=== PATIENT | female | born 1985 | race African-American/Black ===

== ENCOUNTER 2018-03-21 19:33 | Observation (INO) | payer OTHER, SELFPAY ==
[~2018-03-21 19:33] MED LIST: ISOVUE-370 76%-LOCM 1 ML ONE; Iopamidol 370 76% 50 ML VIAL FS ONE
[2018-03-21] MEDS ORDERED: Morphine 4 MG/ML VIAL ONE ×3 (19:55→20:56)
[2018-03-21 20:08] LABS: #Basophils 0.1 thou/uL (0.0-0.2); #Eosinphils 0.2 thou/uL (0.0-0.7); #Lymphocytes 2.3 thou/uL (1.20-3.40); #Monocytes 0.6 thou/uL (0.11-0.59); #Neutrophils 5.5 thou/uL (1.40-6.50); %Basophils 0.7 % (0.0-1.0); %Eosinophils 2.3 % (0.0-10.0); %Lymphocytes 26.6 % (21.0-51.0); %Monocytes 7.4 % (0.0-10.0); %Neutrophils 63.1 % (42.0-75.0); Hemoglobin 11.2 g/dL (12.0-16.0); Mean Corpuscular HGB CONC 32.9 g/dL (32.0-36.0); Mean Corpuscular Hemoglobin 28.3 pg (27.0-31.0); Mean Corpuscular Volume 86.1 fL (78.0-98.0); Mean Platelet Volume 7.3 fL (7.4-10.4); Platelet Count 274 thou/uL (130-400); RBC Distribution Width 13.9 % (11.5-14.5); Red Blood Cell (RBC) Count 3.94 mill/uL (4.20-5.40); White Blood Cell (WBC) Count 8.7 thou/uL (4.8-10.8)
[2018-03-21 20:16] LABS: Bilirubin Negative (Negative); Blood, Urine Large (Negative); Clarity CLEAR (Clear); Glucose, Urine (Dipstick) Negative (Negative); Leukocyte Trace (Negative); Nitrite Negative (Negative); Protein, Urine (Dipstick) Trace mg/dL (Neg-Trace); pH, Urine 7.5 (5.0-9.0)
[2018-03-21 20:19] LABS: Bacteria/HPF None Seen HPF (None Seen); Hyaline Casts/LPF 0-3 HYALINE CAST LPF (0-3 Hyaline); WBC/HPF 0-3 HPF (0-3)
[2018-03-21 20:31] LABS: ALT (SGPT) 17 U/L (8-55); AST (SGOT) 16 U/L (5-34); Albumin 3.7 g/dL (3.5-5.0); Alkaline Phosphatase 55 U/L (40-150); Anion Gap 11 mmol/L (10-20); BUN (Urea Nitrogen) 10 mg/dL (7.0-18.7); Bilirubin, Total 0.3 mg/dL (0.2-1.2); Calc. Creatinine Clearance 0 mL/min (70-130); Calcium 9.3 mg/dL (7.8-10.44); Carbon Dioxide 23 mmol/L (22-29); Chloride 105 mmol/L (98-107); Estimated GFR-MDRD Greater than 90; Globulin 3.6 g/dL (2.4-3.5); Glucose 90 mg/dL (70-105); Lipase 13 U/L (8-78); Potassium 3.8 mmol/L (3.5-5.1); Protein, Total 7.3 g/dL (6.0-8.3); Sodium 135 mmol/L (136-145)
[2018-03-21] MEDS ORDERED: Ondansetron PF 4 MG/2 ML Vial ONE (20:40)
[2018-03-21 21:06] LABS: BHCG - Serum Negative (NEGATIVE); Pregs Control Background? CLEAR/WHITE (CLR/WHITE); Pregs Control Bar Appear? YES (CONTROL BAR)
--- NOTE | 2018-03-21 22:50 | CT ---
CT ABDOMEN WITH CONTRAST CT PELVIS WITH CONTRAST 03/21/18 HISTORY: Abdominal pain. Right lower quadrant pain. COMPARISON: None. CORRELATION: Pelvic ultrasound, 03/21/18. FINDINGS: ABDOMEN CT: Lung bases are clear. Heart size is normal. No significant pericardial fluid. Visualized aorta is unr emarkable. Portal vein is patent. Gallbladder is unremarkable. Subcentimeter hypodensity in the right hepatic lobe are too small to characterize but are statistical ly favored to be cysts. The spleen, pancreas and adrenal glands have appropriate enhancement. Symmetric enhancement of the kidneys. There is mild prominence of the left and right intrarenal colle cting system. Additionally, there is mild prominence of the proximal right ureter. Mid to distal left and right ureter are difficult to appreciate and are presumed to be decompressed. There are no calci fications along the course of either ureter. No gastrohepatic, retrocrural, or periportal lymphadenopathy. No mesenteric mass, lymphadenopathy, free air, or free fluid. There is a ventral abdominal wall herni a containing mesenteric fat. Gastric mucosa, duodenum, and multiple normal caliber small bowel loops are noted. Ileocecal junction is unremarkable. There is scattered fecal material in a nondistended, nondilated colon. Normal calib er appendix is identified. PELVIC CT: The urinary bladder is unremarkable. There is fluid in the pelvis. Left ovarian cyst, measuring 1.7 c m is identified. There is no obvious CT correlate with the left and right adnexal masses noted on rec ent ultrasound. There is no evidence of hydrosalpinx or pyosalpinx. The fallopian tubes do not appear to be distended. There is heterogeneous attenuation of the adnexal structures and the uterus. There are no lytic or blastic lesions in the osseous structures. IMPRESSION: 1. Normal caliber appendix. 2. Heterogeneous attenuation of the adnexal structures and uterus. No definite CT evidence of hy drosalpinx or pyosalpinx. If there is still concern for adnexal pathology, pelvic MRI can be performe d. 3. Mild dilatation of both intrarenal collecting systems and the proximal right ureter. If there is concern for urinary tract infection, urinalysis is recommended. POS: [facility]
--- NOTE | 2018-03-21 23:40 | ULT ---
PELVIC ULTRASOUND: 03/21/18 HISTORY: Right lower quadrant pain, severe. Negative HCG. COMPARISON: None. TECHNIQUE: Transabdominal and endovaginal imaging of the pelvis is performed. Ovaries are interrogated with diane scale, color flow, doppler imaging with spectral waveform analysis. FINDINGS: There is a retroverted uterus, measuring 7.3 x 4.0 x 5.1 cm. No myometrial masses. Endometrium is sli ghtly heterogeneous measuring 0.70 cm. There are bilateral adnexal masses. The right adnexal mass measures 2.6 x 1.3 x 4.5 cm. The left adne xal mass measures 1.9 x 1.4 x 3.4 cm. There is a complex cyst in the left ovary measuring 1.9 x 0.9 cm. Overall, the left ovary measures 0. 8 x 5.0 x 2.6 cm. The right ovary measures 4.0 x 2.2 x 2.1 cm. There is free fluid in the cul-de-sac. OVARIAN DOPPLER: Vascular flow to the right and left ovary. IMPRESSION: Bilateral adnexal masses of uncertain etiology. Further evaluation with abdomen and pelvic CT may be beneficial. CT should be performed with oral and IV contrast. Oral contrast is imperative to better e valuate the bowel, especially given the history of right lower quadrant pain. POS: [facility]
[2018-03-22] MEDS ORDERED: Morphine 4 MG/ML VIAL ONE (00:05)
[2018-03-22] MEDS ORDERED: Ketorolac Tromethamine 30 MG/ML VIAL ONE (00:05)
[2018-03-22] MEDS ORDERED: Morphine 10 MG/ML VIAL SLOW IVP PRN (01:21)
[2018-03-22 02:52] VITALS: BMI 36.5
[2018-03-22] MEDS: Sodium Chloride 0.9% 1,000 ML IV SCH ×2 (04:22→09:44)
[2018-03-22] MEDS ORDERED: Acetaminophen 325 MG TAB PO PRN (07:48)
[2018-03-22] MEDS: Ibuprofen 200 MG TAB PO PRN ×2 (07:53→18:22)
[2018-03-22] MEDS ORDERED: hydrALAZINE 20 MG/ML VIAL SLOW IVP PRN (07:59)
[2018-03-22] MEDS ORDERED: Senokot S 8.6-50 MG TAB PO PRN (07:59)
[2018-03-22] MEDS ORDERED: Benzonatate 100 MG CAP PO PRN (07:59)
[2018-03-22] MEDS ORDERED: Bisacodyl 5 MG TAB PO PRN (07:59)
[2018-03-22] MEDS ORDERED: Diabetic Tussin 200 MG/10 ML UDCUP PO PRN (07:59)
[2018-03-22] MEDS ORDERED: cloNIDine 0.1 MG TAB PO PRN (07:59)
[2018-03-22] MEDS ORDERED: Sodium Chloride 0.9% 1,000 ML IV SCH (09:53)
[2018-03-22] MEDS: Acetaminophen/Codeine 30-300mg Tablet PO PRN ×3 (10:21→18:17)
--- NOTE | 2018-03-22 10:35 | HP ---
DATE OF ADMISSION: 03/22/2018 PRIMARY CARE PHYSICIAN: None. CHIEF COMPLAINT: Right-sided abdominal pain in the lower quadrant as well as vaginal and rectal pain . HISTORY OF PRESENT ILLNESS: Ms. Antonio is a pleasant 32-year-old female without any significant past medical history who presented to the emergency room with above-mentioned complaint. History is mainl y obtained by the patient herself. Electronic medical records have been reviewed. According to Ms. Antonio, she started to have this right lower quadrant abdominal pain about 4 days ago . It actually started as a severe vaginal discomfort when bearing down. She also started to have a rectal pressure and pain about the same time. She feels it as an intense pain every time she tries t o bear down. She denies any dysuria. She denies any blood in the stools or any other rectal bleedin g. She denies any sick contacts, fever, or chills. She is monogamous with her partner and denies an y risk factors for sexually transmitted diseases. She normally has regular menses, but she states th at this month she started to have second episode of bleeding. Her last menstrual period was earlier this month and then she started to have another cycle 4 days ago. She states that when she tried to put a tampon it hurt really bad and she also complains of painful intercourse. Upon presentation to the emergency room, she was hemodynamically stable with blood pressure 123/63. She had low grade fever of 99.1. She underwent thorough examination including a pelvic ultrasound wh ich was questionable for some bilateral adnexal masses, so CT scan of the abdomen and pelvis was done . It was negative for any acute abnormality including normal appendix and no adnexal masses or absce sses. No renal abnormality or stones were seen. She is now being admitted for further evaluation an d pain control. A GC chlamydia screen and vaginitis screen has been obtained. Her urinalysis is unr emarkable. Serum chemistries unremarkable. test of the serum is negative. Lipase is norm al. PAST MEDICAL HISTORY: No significant past medical history. She is otherwise very healthy. PAST SURGICAL HISTORY: Two section. FAMILY HISTORY: She denies any family history of colon cancer, stomach cancer. She denies any famil y history of inflammatory bowel disease. She does have multiple family members with diabetes. PSYCHIATRIC HISTORY: No anxiety, no depression. SOCIAL HISTORY: She has no history of drug, tobacco or alcohol abuse. She lives at home with family and has 2 children. ALLERGIES: PINEAPPLE. MEDICATIONS: None. REVIEW OF SYSTEMS: A 12-point review of systems is done and it is negative except for those mentione d in the history and physical. LABORATORY EXAMINATION: Her CBC is unremarkable. Hemoglobin 11.2. Serum chemistries unremarkable. Lipase 13. Urinalysis showed some leukocyte esterase, but multiple RBCs. CT scan of the abdomen an d pelvis is unremarkable for any acute pathology. Pelvic ultrasound by my review is also unremarkabl e. PHYSICAL EXAMINATION: VITAL SIGNS: Most recent vital signs, temperature 99.5, pulse of 95, respirations 14, saturating 98% on room air, blood pressure 101/56. GENERAL: No acute distress. She does appear somewhat uncomfortable and lies on her side trying not to move much. HEENT: Mucous membrane is moist and pink. No oropharyngeal exudate or erythema. Head is normocepha lic, atraumatic. Pupils equal, reactive to light and accommodation. Extraocular movement intact. NECK: Supple without any lymphadenopathy, JVD or bruit. CHEST: Clear to auscultation without any wheezing, rales or rhonchi. CARDIOVASCULAR: Rhythm is regular without any murmur, rubs or gallops. ABDOMEN: Obese, tender to palpation mainly in the right lower quadrant, but also diffusely up as wel l. She appears bloated, but there is no guarding, rebound or rigidity. EXTREMITIES: Free of any cyanosis, clubbing, or edema. NEUROLOGIC: Nonfocal. SKIN: Free of any rashes or bruises. Feels warm and dry to touch. PSYCHIATRIC: Normal affect. IMPRESSION AND PLAN: 1. Pelvic and rectal pain. I think it is more of a pelvic complain than an abdominal complain as ev idenced by a normal CT scan and the patient's symptoms of dyspareunia and vaginal discomfort with rec julian pressure-like sensation. A normal pelvic ultrasound is reassuring, but she might have some vagin itis or vaginosis going on. At this time, we will have to wait for the results of the GC chlamydia s creening and the vaginitis screening. Meanwhile, we will request consultation with CERTIFIED NURSES AIDE for recomm endations regarding the treatment and follow up. Other than that, the patient will be treated sympto matically and supportively with some gentle IV fluids and pain medications. Once the results of the screening are available, it will be treated appropriately with antibiotics as needed or indicated. 2. Morbid obesity. The patient's BMI is 36.6. Dietary and lifestyle modification are advised. 3. Anemia most likely chronic iron deficiency anemia. The patient's baseline hemoglobin is 12.7. 4. Abnormal uterine bleeding. Once again can be secondary to vaginal infection. 5. Deep venous thrombosis and gastrointestinal prophylaxis with sequential compression devices and P epcid. DISPOSITION: Ms. Antonio is currently being admitted under observation status for what sounds like a v aginitis and resultant severe pain. Further management will depend upon the results of her vaginal s creening and recommendations from CERTIFIED NURSES AIDE. I have discussed the case with Dr. Moore who was sharepoint application developer f or CERTIFIED NURSES AIDE [facility] and has graciously agreed to see the patient for me.
[2018-03-22] MEDS ORDERED: cefTRIAXone\\ROCEPHIN 1 GM in Sodium Chloride 0.9% 100 ML IVPB SCH (11:15)
[2018-03-22] MEDS: Ondansetron PF 4 MG/2 ML Vial IVP PRN (11:54)
[2018-03-22 12:55] LABS: Bilirubin Negative (Negative); Blood, Urine Small (Negative); Clarity CLEAR (Clear); Glucose, Urine (Dipstick) Negative (Negative); Leukocyte Negative (Negative); Nitrite Negative (Negative); Protein, Urine (Dipstick) Trace mg/dL (Neg-Trace)
[2018-03-22 12:59] LABS: Pathc Cast-AUWi Flag 1.45 (0-2.49)
--- NOTE | 2018-03-22 13:07 | CON ---
DATE OF CONSULTATION: 03/22/2018 TIME OF EVALUATION: 10:35 until 10:55. LOCATION: [address] [place] [address]/procedure room at [facility]. REASON FOR EVALUATION: Pelvic pain in a 32-year-old sexually active female. REQUESTING PHYSICIAN: Dr. Altagracia Short (Internal Medicine). HISTORY OF PRESENT ILLNESS: In brief, this is a 32-year-old -[place] 4, para 2 with 2 prior C-sections, also with one history of spontaneous miscarriage, and one history of te rmination, who states increased pelvic discomfort described as pressure in the vaginal and rectal are a since Friday. She has attempted to take home medications, but the pain was still there. No fever s were reported per Dr. Short. She is sexually active with one partner. Her last sexual activity was 03/11/2018 without condom use. There is no control in use. REVIEW OF SYSTEMS: Complete review of systems was done and is otherwise negative unless specified in the HPI. PAST MEDICAL HISTORY: Negative for diabetes. Negative for hypertension. PAST SURGICAL HISTORY: x2. ALLERGIES: No drug allergies. (PT PAL states PINEAPPLE allergy). SOCIAL HISTORY: Significant for half a pack smoker per day. DOUBLE CUT SAWYER HISTORY: Last menstrual period was 02/27/2018 to 03/06/2018 with an episode of bleeding again on 03/18/2018 that was on and off and then recurrence on 03/22/2018. Currently, she is having some sli ght vaginal bleeding as well. LABORATORY ASSESSMENT: When the patient was initially admitted, white blood cell count was noted to be normal at 8.7 with hematocrit value of 33.9, platelets were normal as well. On chemistries, AST a nd ALT were both normal. Creatinine was normal at 0.7. Urine showed large blood with trace leukocyt e esterase with moderate amount of uterine red blood cells, but this was a clean catch and the patien t was on a cycle. IMAGING STUDIES: Ultrasound was performed on 03/21/2018 at approximately 2012, which showed a suspic ion of small bilateral adnexal masses, NOS. Uterus was 7 x 4 x 5. Flow was seen bilaterally. Due t o the unsure presence of adnexal masses, each one under 3 cm, CT scan was ordered. CT scan showed mi ld attenuation in the adnexal area, but no distinct mass. There was no evidence of hydrosalpinx or p yosalpinx or tubal inflammation on CT. Gynecological examination was otherwise negative on CT scan r esults. On my gynecological consult, I performed a speculum exam and found slight/mild vaginal bleeding per c ervix, compatible with disorganized bleed. Uterus was slightly tender to deep palpation, but no adne xal masses were palpated. There was no rebound or guarding. There was no cervical motion tenderness , although she had some discomfort on speculum insertion. INTERVENTIONS ORDERED: I have ordered urinalysis by in and out cath to rule out UTI since her first urine seemed to be contaminated by menstrual debris. ASSESSMENT: This is a patient who is a 32-year-old multigravida sexually active female with onset of pelvic pain since Friday on and off. Uterine tenderness on exam and disorganized bleeding raises t he question for subclinical metritis. There is no evidence of tubo-ovarian abscess on CT scan nor is there evidence of salpingitis on CT. Based on CDC criteria of uterine tenderness and adnexal tender ness on deep palpation, we may treat her empirically with doxycycline for subclinical metritis. PLAN: 1. Doxycycline for 7 days oral therapy as an outpatient. We will also give the patient Rocephin 1 g hetal IV per CDC recommendation for treatment of possible subacute metritis/mild PID based on physical exam. 2. Gonorrhea and chlamydia PCR has been sent and results are still pending. 3. Vaginitis panel 3 is still pending. 4. Urine test was done and is negative. 5. The patient needs outpatient ultrasound followup. An ultrasound was recommended in about 4 weeks to evaluate the questionable adnexal structures, seen on ultrasound here in the emergency department , which were not recognized on CT scan. In brief, this patient meets CDC criteria of mild subclinical metritis/mild PID on physical exam. GC , chlamydia and PHLEBOTOMY SERVICES REPRESENTATIVE-3 tests are still pending. We will treat with Rocephin and doxycycline for presum ed tract infection.
[2018-03-22 13:08] LABS: Bacteria/HPF Rare-Few HPF (None Seen); Hyaline Casts/LPF NONE SEEN LPF (0-3 Hyaline); Renal Epithelial None Seen HPF (0-3); Transitional Epithelial NONE SEEN HPF (0-3)
--- NOTE | 2018-03-22 15:36 | PDOC.EVN ---
Event Note - Event Note Event Note: VP3 negative GC/Chl pending
--- NOTE | 2018-03-22 15:37 | PDOC.EVN ---
Event Note - Event Note Event Note: Cath UA with rare bacteria...Rocephin IV already ordered x 1
[2018-03-22 23:48] LABS: Chlamydia by PCR DETECTED (NotDetected); GC by PCR Not Detected (NotDetected)
[2018-03-23] MEDS: Acetaminophen/Codeine 30-300mg Tablet PO PRN ×3 (00:43→10:44)
[2018-03-23] MEDS: Ibuprofen 200 MG TAB PO PRN ×2 (00:43→10:45)
[2018-03-23] MEDS ORDERED: Azithromycin 1,000 MG in Sodium Chloride 0.9% 500 ML IVPB SCH (06:15)
--- NOTE | 2018-03-23 06:18 | PDOC.EVN ---
Event Note - Event Note Event Note: 03/23/18: [facility]. Still with pelvic discomfort O. Afebrile with TMax 99.2, normotensive CHLAMYDIA RETURNED POSITIVE GC negative A/P: PID: 1. Chlamydia positive...I have ordered Zmax 1 gram IV X 1 this am. She also has doxy for discharge medication. 2. HIV and RPR ordered as health maintance 3. I discussed these findings with the patient and told her about the STI. partner needs therapy. 4. Recommended Follow Up in 2 weeks with any OBGYN or [facility]
[2018-03-23 07:05] LABS: Syphilis Antibody Nonreactive (Nonreactive); Syphilis Antibody Index 0.06 S/CO (<1.00 Non-Reactive)
[2018-03-23 07:06] LABS: HIV (1/2) Antibody/Antigen Non-Reactive (NonReactive); HIV 1/2 INDEX 0.12 S/CO (<1.00)
[2018-03-23] MEDS: Ondansetron PF 4 MG/2 ML Vial IVP PRN (07:37)
--- NOTE | 2018-03-23 07:47 | PDOC.EVN ---
Event Note - Event Note Event Note: HIV and RPR are negative. I wrote for EPT for partner: DOXY 100mg po BID X 7 days.
[2018-03-23 07:55] VITALS: BP 112/53; TEMP 99.3
--- NOTE | 2018-03-23 15:36 | DIS ---
DATE OF ADMISSION: 03/22/2018 DATE OF DISCHARGE 03/23/2018 DISCHARGE DIAGNOSES: 1. Chlamydia pelvic inflammatory disease. 2. Right-sided abdominal pain secondary to that. 3. Morbid obesity with BMI of 36.6. DISCHARGE MEDICATIONS: Doxycycline 100 mg p.o. b.i.d. Please note that the patient has been treated with azithromycin 1 gram IV x1 in the hospital as well as Rocephin 1 gram IV x1. PROCEDURES DONE IN THE HOSPITAL: 1. CT scan of the abdomen and pelvis, which is negative for any acute changes. There is no pelvic a bnormality seen on the CT scan. 2. Pelvic ultrasound. The pelvic ultrasound did mention bilateral adnexal masses that were not seen on the CT scan. CONSULTATIONS: BUILDING WRECKER, Dr. Moore. HISTORY OF PRESENT ILLNESS: Ms. Antonio is a pleasant 32-year-old female without any significant past medical history who presented to the emergency room with complaints of 4-day duration of right-sided lower abdominal pain as well as vaginal pain and rectal pain and pressure on bearing down. She was h emodynamically stable upon presentation. Her initial workup was unremarkable. She underwent a pelvi c ultrasound in the ER, which was concerning for bilateral adnexal fluid collection, but this was ref uted by the CT scan of the abdomen and pelvis done in the ER. She was admitted and GC chlamydia scre ening and vaginitis screening was sent. BUILDING WRECKER was then consulted, because of her symptoms suggestio n of PID. Please see admission history and physical for further details. HOSPITAL COURSE: The patient had positive chlamydia screen and was treated appropriately. Her vagin itis screen was negative. She was given Rocephin 1 dose IV as well as azithromycin 1 gram IV as well as doxycycline 100 mg p.o. b.i.d. for a total of 7 days. This prescription was provided to her by Tito Moore. Treatment was also provided for her partner with doxycycline 100 mg p.o. b.i.d. for 7 days and the feliz krause did discuss this diagnosis with her partner. They all understand the implications of this. Juanita burr is encouraged to follow up with [facility] and Dr. Moore in the outpatient s etting. She was seen and examined this morning. PHYSICAL EXAMINATION: VITAL SIGNS: Temperature 99.3, pulse of 90, blood pressure 112/53, respirations 20, saturating 100% on room air. GENERAL: No acute distress, awake, alert, oriented x3. CHEST: Clear to auscultation bilaterally. Rate and rhythm is regular. ABDOMEN: Nontender. No guarding, rebound or rigidity, but it is somewhat distended. Her HIV screening as well as syphilis IgG and IgM antibodies are negative. Gonorrhea PCR was done an d is negative. Urinalysis is not suggestive of infection and test was negative.
== END 2018-03-23 12:17 | disposition home or self-care (01) ==
LOC: ERS 19:33 → 3SE 03-22 00:14
PROVIDERS: ADMIT Hospitalist; ATTEND Hospitalist
DX: A56.11 Chlamydial female pelvic inflammatory disease (principal); F17.210 Nicotine dependence, cigarettes, uncomplicated; D64.9 Anemia, unspecified; E66.01 Morbid (severe) obesity due to excess calories; Z68.36 Body mass index [BMI] 36.0-36.9, adult; Z98.891 History of uterine scar from previous surgery; Z91.018 Allergy to other foods
CPT/HCPCS: 36415; 74177; 76856; 80053; 81003; 81015; 83690; 84703; 85025; 86780; 87086; 87389; 87480; 87491; 87510; 87591; 87660; 96361; 96365; 96367; 96374; 96375; 96376; G0378; J0456; J0696; J1885; J2270; J2405; J7050

== ENCOUNTER 2022-07-28 04:22 | Emergency (ER) | payer OTHER ==
[2022-07-28] MEDS ORDERED: Ondansetron ODT 4 MG TAB ONE (06:12)
[2022-07-28] MEDS ORDERED: Ibuprofen 800 MG TAB ONE (06:12)
== END 2022-07-28 07:33 | disposition home or self-care (01) ==
LOC: ERS 04:22
DX: J11.1 Influenza due to unidentified influenza virus with other respiratory manifestations (principal); J18.9 Pneumonia, unspecified organism; F17.210 Nicotine dependence, cigarettes, uncomplicated
CPT/HCPCS: 71045; Q0162

== ENCOUNTER 2023-02-01 01:36 | Emergency (ER) | payer OTHER, SELFPAY ==
[2023-02-01] MEDS ORDERED: Dexamethasone 10 MG/ML VIAL ONE (04:04)
[2023-02-01] MEDS ORDERED: Acetaminophen 500 MG TAB ONE (04:14)
== END 2023-02-01 04:26 | disposition home or self-care (01) ==
LOC: ERS 01:36
DX: J03.90 Acute tonsillitis, unspecified (principal)
CPT/HCPCS: 87081; 87430; 99283; J1100